=== PATIENT | male | born 1955 | race Caucasian/White ===

== ENCOUNTER 2016-06-29 10:51 | Emergency (ER) | payer OTHER ==
[~2016-06-29] VITALS: Ht 180.3 cm; Wt 109.7 kg
[2016-06-29] MEDS ORDERED: METOPROLOL TART25 MG PO (11:33)
[2016-06-29] MEDS ORDERED: PLAVIX75 MG PO (11:34)
[2016-06-29] MEDS ORDERED: LIPITOR40 MG PO (11:34)
[2016-06-29] MEDS ORDERED: FLOMAX0.4 MG PO (11:34)
[2016-06-29] MEDS ORDERED: ESCITALOPRAM OX20 MG PO (11:35)
[2016-06-29] MEDS ORDERED: XANAX0.5 MG PO (11:35)
[2016-06-29] MEDS ORDERED: PHENTERMINE H37.5 MG PO (11:36)
[2016-06-29 12:11] LABS: HEMATOCRIT 46.9 % (38.0-50.0); MCH 32.6 PG (29.0-34.0); MCHC 35.6 G/DL (30.0-36.0); MCV 91.4 FL (86-99); PLATELET COUNT 248 K/uL (156-360); RBC DIS.WIDTH-SD 40.1 % (39-53); RED BLOOD COUNT 5.13 M/uL (4.00-5.50); WHITE BLOOD COUNT 8.5 K/uL (4.1-10.2)
[2016-06-29 12:22] LABS: CHLORIDE 105 mEq/L (99-109); POTASSIUM 4.6 mEq/L (3.7-5.4); SODIUM 141 mEq/L (136-147)
[2016-06-29 12:24] LABS: GLUCOSE 89 mg/dL (70-99)
[2016-06-29 12:25] LABS: ANION GAP 11 MEQ/L (2-14)
[2016-06-29 12:26] LABS: TOTAL BILIRUBIN 1.6 mg/dL (0.0-1.0)
[2016-06-29 12:28] LABS: ALKALINE PHOSPHATASE 48 IU/L (3-129); GFR ESTIMATE (CALCULATED) > 59 mL/min/
[2016-06-29 12:29] LABS: UREA NITROGEN (BUN) 13 mg/dL (9-23)
[2016-06-29 12:31] LABS: TROP-I INTERPRETATION NEGATIVE; TROPONIN-I 0.02 ng/mL (0.0-0.30)
[2016-06-29 14:14] LABS: TROP-I INTERPRETATION NEGATIVE; TROPONIN-I 0.01 ng/mL (0.0-0.30)
[2016-06-29] MEDS ORDERED: FLEXERIL10 MG PO (14:34)
[2016-06-29 14:56] VITALS: BP 146/75
== END 2016-06-29 14:56 | disposition home or self-care (01) ==
LOC: EME 10:51
PROVIDERS: Nurse Practitioner Family
DX: R20.2 Paresthesia of skin (principal); I10 Essential (primary) hypertension; Z95.5 Presence of coronary angioplasty implant and graft; Z87.891 Personal history of nicotine dependence
CPT/HCPCS: 70450; 80053; 84484; 85027; 93005; 99281; 99283